=== PATIENT | female | born 1985 | race African-American/Black ===

== ENCOUNTER 2017-09-11 06:55 | Inpatient (IN) | payer OTHER ==
[2017-09-11] MEDS ORDERED: ELECTROLYTE-148 SOLN 500 ML IV ONE (07:00)
[2017-09-11 07:48] VITALS: BMI 38.4
[2017-09-11] MEDS ORDERED: PHENYLEPHRINE HCL 10 MG/1 ML SINGLE DOSE VIAL ONE (08:11)
[2017-09-11] MEDS ORDERED: morphine SULFATE/Preservative Free 0.5 MG/ML (1cc Syringe) ONE (08:11)
[2017-09-11] MEDS ORDERED: ONDANSETRON 4 MG/2 ML VIAL IVPUSH PRN (08:28)
[2017-09-11] MEDS ORDERED: CITRIC ACID/SODIUM CITRATE 30 ML UNIT-DOSE CUP PO ONE (08:30)
[2017-09-11] MEDS ORDERED: IBUPROFEN 800 MG/8 ML IJ IVPB PRN (08:31)
[2017-09-11] MEDS: ELECTROLYTE-148 SOLN 1,000 ML IV SCH (08:35)
--- NOTE | 2017-09-11 08:48 | HP ---
Past Medical History - Primary Care Physician PCP:: Jeffery Chau - Admission Chief Complaint: 31yo P1 with at EGA 39 6/7 wks admitted for repeat C/ S History of Present Illness: Prior C/S Obesity Maci's Thyroiditis Anemia History Source: Patient, Medical Record Limitations to Obtaining History: No Limitations - Past Medical History DAYCARE WORKER: No: Alzheimer's, CVA, Dementia, Migraine, Multiple Sclerosis, Peripheral Neuropathy, Parkinson's, Seizure, Syncope, TIA, Vertigo, Other Cardiovascular: No: AFIB, Aneurysm, Aortic Insufficiency, Aortic Stenosis, CAD, CHF, Deep Vein Thrombosis, HTN, Hyperlipdemia, ND, Mitral Insufficiency, Mitral Stenosis, Murmur, Pulmonary Hypertension, Other Pulmonary: No: Asthma, Bronchitis, Cancer, COPD, O2 Dependent, Pneumonia, Previously Intubated, Pulmonary Embolus, Pulmonary Fibrosis, Sleep Apnea, Other Gastrointestinal: No: Ascites, Cancer, Constipation, Crohn's Disease, Diverticulitis, Diverticulosis, Esophageal Varices, Gastritis, GERD, GI Bleed, Hemorrhoids, Hiatal Hernia, Inflamatory Bowel Disease, Irritable Bowel Disease, Pancreatitis, Peptic Ulcer Disease, Ulcerative Colitis, Other Hepatobiliary: No: Cirrhosis, Cholelithiasis, Cholecystitis, Choledocholithiasis , Hepatitis A, Hepatitis B, Hepatitis C, Other Renal/: No: Renal Failure, Renal Inusuff, BPH, Cancer, Hematuria, Hemodialysis , Neurogenic Bladder, Renal Calculi, UTI, Other Reproductive: No: Ectopic , Endometriosis, Fibroids, PID, Polycystic Ovary Syndrome, Postmenopausal, Other ...: 4 ...Para: 1 ...Term: 1 ...: 0 ...Spon : 2 ...Induced : 0 ...Multiple Gestation: 0 ...LMP: 12/01/16 ... Weeks Gestation by Dates: 39.6 ...EDC by Dates: 09/12/17 Heme/Onc: Yes: Anemia Infectious Disease: No: AIDS, C-Diff, Herpes Zoster, HIV, MRSA, STD's, Tuberculosis, VREF, Other Psych: No: Addictions, Anxiety, Bipolar, Depression, Panic, Psychosis, Schizophrenia, Other Musculoskeletal: No: Bursitis, Chronic low back pain, Hemiparesis, Hemiplegia, Osteoarthritis, Paraplegia, Other Rheumatology: No: Fibromyalgia, Gout, Lupus, Rheumatoid Arthritis, Sarcoidosis, Vasculitis, Other ENT: No: Allergic Rhinitis, Sinusitis, Other Endocrine: Yes: Hypothyroidism Dermatology: No: Basal Cell, Cellulitis, Eczema, Melanoma, Psoriasis, Squamous Cell, Other - Past Surgical History Past Surgical History: Yes: Hx Myomectomy: No Hx Transabdominal Cerclage: No - Smoking History Smoking history: Never smoked Have you smoked in the past 12 months: No - Alcohol/Substance Use Hx Alcohol Use: No History of Substance Use: reports: None - Social History Usual Living Arrangement: Yes: With Child ADL: Independent History of Recent Travel: No Home Medications - Allergies Allergies/Adverse Reactions: Allergies Allergy/AdvReac Type Severity Reaction Status Date / Time No Known Allergies Allergy Verified 09/11/17 07:31 - Home Medications Home Medications: Ambulatory Orders Ferrous Sulfate [Feosol] 325 mg PO DAILY 09/11/17 Levothyroxine [Synthroid -] 50 mcg PO DAILY 09/11/17 Vit/Iron Fum/Folic AC [ Tablet] 1 tab PO DAILY 09/11/17 Family Disease History - Family Disease History Family History: Denies Review of Systems - Review of Systems Constitutional: reports: No Symptoms Eyes: reports: No Symptoms HENT: reports: No Symptoms Neck: reports: No Symptoms Cardiovascular: reports: No Symptoms Respiratory: reports: No Symptoms Gastrointestinal: reports: No Symptoms Genitourinary: reports: No Symptoms Breasts: reports: No Symptoms Reported Musculoskeletal: reports: No Symptoms Integumentary: reports: No Symptoms Neurological: reports: No Symptoms Endocrine: reports: No Symptoms Hematology/Lymphatic: reports: No Symptoms Psychiatric: reports: No Symptoms Pain Intensity: 0 Physical Exam - Maternity Vital Signs: Vital Signs Temperature 98.5 F 09/11/17 07:40 Pulse Rate 95 H 09/11/17 07:40 Respiratory Rate 20 09/11/17 07:40 Blood Pressure 126/79 09/11/17 07:40 O2 Sat by Pulse Oximetry (%) Constitutional: Yes: Well Nourished, No Distress, Calm, Obese Eyes: Yes: WNL, Conjunctiva Clear HENT: Yes: WNL, Atraumatic, Normocephalic Neck: Yes: WNL, Supple, Trachea Midline Cardiovascular: Yes: WNL, Regular Rate and Rhythm Lungs: Clear to auscultation, Normal air movement - Abdominal Exam/OB Fundal Height: 40 Number of Fetuses: Single Presentation: Vertex Contractions: No Monitor Mode: External Heart Rate (range): 150 Heart Rate Location: Midline Category: I Accelerations: Non-Uniform Decelerations: None - Vaginal Exam/OB Vaginal Bleediing: No Speculum Exam: No Amniotic Membrane Status: Intact - Physical Exam Musculoskeletal: Yes: WNL Extremities: Yes: WNL Edema: Yes Edema: LLE: Trace, RLE: Trace Integumentary: Yes: WNL Deep Tendon Reflex Grade: Normal +2 ...Motor Strength: WNL Psychiatric: Yes: WNL, Alert, Oriented Hemorrhage Risk Assessment - Risk Factors Medium Risk Factors: Yes: Prior , uterine surgery,or multiple laparotomies High Risk Factors: Yes: None Risk Score: 1 Risk Level: Medium Risk Assessment/Plan 31yo P1 with at EGA 39 6/7 wks admitted for repeat C/S. We discussed the risks and benefits of C/S at length, including but not limited to scarring, pain, bleeding, infection, injury to underlying organs and structures, need for additional surgery to repair/treat any problems or complications, complications/injuries, etc. The pt verbalized her understanding and requested to proceed with surgery. The pt is aware that all surgeries have risks and no guarantees can be provided.
[2017-09-11] MEDS ORDERED: ELECTROLYTE-148 SOLN 1,000 ML IV SCH (09:00)
[2017-09-11] MEDS ORDERED: OXYTOCIN 20 UNITS in 0.9% NS 20 UNIT/1,000 ML INFUS.BAG IV ONE (09:35)
[2017-09-11] MEDS: OXYTOCIN 20 UNITS in 0.9% NS 20 UNIT/1,000 ML INFUS.BAG IV SCH ×2 (10:03→15:44)
[2017-09-11 10:37] LABS: ARTERIAL BLD GAS O2 SATURATION 9.8 % (90-98.9); ARTERIAL BLOOD GAS BASE EXCESS -1.9 meq/l (-2-2); ARTERIAL BLOOD GAS PCO2 67.5 mmHg (35-45); ARTERIAL BLOOD GAS PO2 11.8 mmHg (80-100); ARTERIAL BLOOD GAS pH 7.23 (7.35-7.45)
[2017-09-11] MEDS ORDERED: oxyCODONE HCL 5 MG TABLET PO PRN ×2 (10:42)
[2017-09-11] MEDS ORDERED: SENNOSIDES/DOCUSATE COMBO (SENNA PLUS) TABLET (UD) PO PRN (10:42)
[2017-09-11] MEDS ORDERED: METHYLERGONOVINE MALEATE 0.2 MG/1 ML AMP IM PRN (10:42)
[2017-09-11 10:45] LABS: VENOUS PC02 57.1 mmHg (38-52); VENOUS PH 7.29 (7.32-7.42)
[2017-09-11 10:46] LABS: VENOUS PO2 22.6 mmHg (28-48)
[2017-09-11] MEDS ORDERED: KETOROLAC TROMETHAMINE 30 MG/1 ML VIAL ONE (10:51)
--- NOTE | 2017-09-11 12:04 | OP ---
Operative Note - Note: Operative Date: 09/11/17 Pre-Operative Diagnosis: at EGA 39w 6d with prior C/S, maternal obesity Operation: Repeat LT C/S Findings: Dense adhesions b/w bladder and anterior abdominal wall and uterus. Live baby boy in vtx presentation, light meconium in amniotic fluid. 9/9 Post-Operative Diagnosis: Same as Pre-op Surgeon: Jeffery Chau Specialty Development Consultant: Marianela Knutson Anesthesiologist/CONCRETE FLOATER: Ashley Watkins Anesthesia: Spinal Specimens Removed: Placenta Estimated Blood Loss (mls): 1,000 Drains & Tubes with Location: Tovar cath Drains, Volume Out (mls): 150 (clear urine) Blood Volume Replaced (mls): 0 Fluid Volume Replaced (mls): 900 Operative Report Dictated: Yes
--- NOTE | 2017-09-11 12:12 | PN ---
Delivery - Delivery Section: Repeat, Low Flap Transverse Type of Anesthesia: Spinal Episiotomy/Laceration: None EBL (cc): 1,000 Delivery, Single - Stages of Labor Date of Delivery: 09/11/17 Time of Delivery: 10:03 Date Placenta Delivered: 09/11/17 Time Placenta Delivered: 10:04 Placenta: Yes: Manual Removal, Normal Configuration - Condition of Ironer Sock/Power Generation Technician Present: Yes Name: Silvia Platt Infant Gender: Female Weight: 3.629 kg Position: Left, OT Total Hours ROM (Hrs/Mins): 3mins - 1 Minute Total Score: 9 5 Minutes Total Score: 9 - [place] Feeding Plan Initial Plan: Elected not to breastfeed exclusively throughout hospitalization Benefits of Exclusively reinforced: Yes
[2017-09-11] MEDS: LEVOTHYROXINE NA 50 MCG TABLET (FP) PO SCH (12:44)
[2017-09-11] MEDS: ENOXAPARIN NA (PORCINE) 40 MG/0.4 ML DISP.SYRIN SQ SCH (12:45)
[2017-09-11] MEDS: PRENATAL VITAMINS W/ FOLIC ACID TABLET (FP) PO SCH (12:45)
[2017-09-11] MEDS ORDERED: TUBERCULIN PPD 5 TU/0.1ML SYRINGE (IN PATIENT USE ONLY) ID ONE (13:00)
[2017-09-11] MEDS ORDERED: ceFAZolin SODIUM 1 GM VIAL ONE (17:17)
[2017-09-11] MEDS ORDERED: DEXTROSE 5%-WATER - 50 ML IVPB ONE (17:17)
[2017-09-11] MEDS: CEFAZOLIN 1 GM in DEXTROSE 5%-WATER - 50 ML IVPB SCH (17:23)
--- NOTE | 2017-09-11 21:57 | OP ---
DATE OF OPERATION: 09/11/2017 PREOPERATIVE DIAGNOSES: at 39 weeks and 6 days, previous section, maternal obesity complicating and delivery. POSTOPERATIVE DIAGNOSES: at 39 weeks and 6 days, previous section, maternal obesity complicating and delivery. PROCEDURE: Low transverse section via Pfannenstiel skin incision. SURGEON: Jeffery Chau MD ELECTRICAL INTERN: Marianela Knutson MD ANESTHESIA: Spinal. ANESTHESIOLOGIST: PATHOLOGY: Placenta. INTRAVENOUS FLUIDS: 900 mL URINE OUTPUT: Clear urine 150 mL at the end of the procedure. ESTIMATED BLOOD LOSS: 1000 mL FINDINGS: Dense adhesions were noted between the anterior abdominal wall and bladder, as well as the bladder and the lower uterine segment. A live baby boy delivered from vertex presentation; light meconium in amniotic fluid; Apgars 9 and 9. DESCRIPTION OF PROCEDURE: The patient was met preoperatively. Risks, benefits, and alternatives of surgery were discussed in details. All questions were answered. The patient was brought to the OR with the IV running. She was placed on a surgical table in a sitting position. The spinal anesthesia was achieved without difficulty. The patient was then placed in a supine position with a leftward tilt. A Tovar catheter was inserted and left to drain to gravity. The patient was then prepped and draped in the usual sterile fashion. A timeout procedure was conducted as per standard protocol. The surgeons then proceeded with the operation. A Pfannenstiel skin incision was made with a knife along the prior scar. The incision was taken down to the level of fascia. The fascia was incised in the midline, and the incision was extended bilaterally using Brice scissors. The fascia was dissected away from the rectus muscles superiorly and inferiorly. The rectus muscles were in the midline using sharp dissection. The peritoneum was identified and entered sharply. The peritoneal incision was extended superiorly and inferiorly. Dense adhesions between the anterior abdominal wall and bladder were carefully dissected. The bladder was then dissected away from the lower uterine segment. Only limited bladder dissection was undertaken due to dense adhesions. The bladder was reflected downwards. The uterus was entered transversely in the lower uterine segment. The incision was extended bilaterally using bandage scissors. The amniotic bag was ruptured, and meconium-stained amniotic fluids were noted. The baby was delivered from vertex presentation without complications. The umbilical cord was clamped and cut. The baby was crying spontaneously and handed to the awaiting alley cleaner. A segment of the umbilical cord was secured for umbilical cord gases. The placenta was delivered manually without complications. The uterine cavity was cleared of all clots and debris using laparotomy laps. The uterus was then exteriorized. The uterine incision was repaired using a 0 Biosyn suture with a running locking stitch. Good hemostasis noted. The uterine incision was then imbricated using a 0 Biosyn suture with a running stitch and good hemostasis. The bladder peritoneum was approximated using several interrupted 0 Biosyn sutures. The operative site was irrigated using copious amounts of normal saline. Once the saline was aspirated, good hemostasis was noted. The uterus was returned into abdominal cavity. Once again, good hemostasis was confirmed. The abdominal peritoneum was closed with a 2-0 chromic suture. The rectus muscles were approximated in the midline using several interrupted 2-0 chromic sutures. The rectus fascia was closed using a 0 Vicryl suture. The skin was closed using ernestine. Good hemostasis was confirmed. Sponge, lap, and needle counts were correct. The patient tolerated the procedure well and was transferred to recovery room awake and in stable condition. Roland [id number]
[2017-09-12] MEDS ORDERED: ceFAZolin SODIUM 1 GM VIAL ONE ×2 (01:26→09:23)
[2017-09-12] MEDS ORDERED: DEXTROSE 5%-WATER - 50 ML IVPB ONE ×2 (01:26→09:22)
[2017-09-12] MEDS: CEFAZOLIN 1 GM in DEXTROSE 5%-WATER - 50 ML IVPB SCH ×2 (01:30→09:36)
[2017-09-12] MEDS ORDERED: ACETAMINOPHEN 325 MG TABLET (FP) ONE (05:55)
[2017-09-12] MEDS: IBUPROFEN 600 MG TABLET (FP) PO PRN ×4 (06:02→22:19)
[2017-09-12] MEDS: SIMETHICONE 80 MG TAB.CHEW (FP) PO PRN ×4 (06:02→22:18)
[2017-09-12] MEDS: ACETAMINOPHEN 325 MG TABLET (FP) PO PRN ×4 (06:10→22:18)
[2017-09-12] MEDS: LEVOTHYROXINE NA 50 MCG TABLET (FP) PO SCH (06:37)
[2017-09-12 08:19] LABS: BASO % 0.4 % (0-2.0); EOS % 0.7 % (0-4.5); HEMATOCRIT 35.5 % (32.4-45.2); HEMOGLOBIN 11.7 GM/dL (10.7-15.3); LYMPH % 15.8 % (8-40); MCH 27.5 pg (25.7-33.7); MCHC 32.9 g/dl (32.0-36.0); MEAN CELL VOLUME 83.4 fl (80-96); MEAN PLT VOLUME 8.8 fl (7.5-11.1); MONO % 8.2 % (3.8-10.2); NEUT % 74.9 % (42.8-82.8); PLATELET COUNT 147 K/MM3 (134-434); RBC 4.26 M/mm3 (3.60-5.2); RDW 15.3 % (11.6-15.6); WHITE BLOOD COUNT 11.9 K/mm3 (4.0-10.0)
[2017-09-12] MEDS: PRENATAL VITAMINS W/ FOLIC ACID TABLET (FP) PO SCH (09:36)
[2017-09-12] MEDS: ENOXAPARIN NA (PORCINE) 40 MG/0.4 ML DISP.SYRIN SQ SCH (09:37)
--- NOTE | 2017-09-12 10:15 | PN ---
Progress Note (short form) - Note Progress Note: Post op day#1.S/p C section under spinal anesthesia with duramorph uneventful.Patient stable and has little pain for which she is on medication.no any anesthesia related problem.Patient DC from the anesthesia care.
[2017-09-12] MEDS ORDERED: BISACODYL 10 MG SUPP.RECT RC PRN (10:42)
[2017-09-13] MEDS: LEVOTHYROXINE NA 50 MCG TABLET (FP) PO SCH (06:45)
[2017-09-13] MEDS: IBUPROFEN 600 MG TABLET (FP) PO PRN ×3 (06:47→19:43)
[2017-09-13] MEDS: SIMETHICONE 80 MG TAB.CHEW (FP) PO PRN (06:47)
[2017-09-13] MEDS: ACETAMINOPHEN 325 MG TABLET (FP) PO PRN ×3 (06:47→19:43)
[2017-09-13] MEDS: PRENATAL VITAMINS W/ FOLIC ACID TABLET (FP) PO SCH (09:47)
[2017-09-13] MEDS: ENOXAPARIN NA (PORCINE) 40 MG/0.4 ML DISP.SYRIN SQ SCH (09:47)
--- NOTE | 2017-09-13 15:40 | PATH ---
Surgical Pathology Report Patient Name: ANDREW GASTELUM [facility]. Rec. #: [id number] /Age/Gender: 1985 (Age: 31) / F Account: [id number] Location: [facility] OBS/CAMPAIGN CONSULTANT Taken: 09/11/2017 Received: 09/12/2017 Reported: 09/13/2017 Physicians: Jeffery Chau M.D. Specimen(s) Received PLACENTA Clinical History , 39.6 weeks, previous 01/2013 Final Diagnosis Placenta, : Mature THIRD trimester placenta with trivESSel umbilical cord. Electronically Signed April Reyes M.D. Gross Description The specimen is received fresh labeled placenta and is a 512 gram, 21.0 x 15.0 x 2.6 cm. placenta with attached membranes and umbilical cord. The attached membranes are sandoval, translucent with focal opacities and insert marginally. The umbilical cord measures 9 cm. in length and averages 1.4 cm. in diameter. The cord inserts eccentrically, 5 cm. to the nearest margin. No true knots or strictures are identified. Cut surface of the umbilical cord reveals 3 vessels. The surface is alfaro-blue with minimal fibrin deposition and appropriate caliber vessels. The maternal surface is red-brown with focal defects. Sectioning reveals red-brown, spongy parenchyma. No lesions are identified. Lay Up Operator sections are submitted in three cassettes as follows: 1- membrane rolls and umbilical cord; 2-3- full thickness sections of placenta. 09/12/2017 [facility]09/12/2017
--- NOTE | 2017-09-13 17:21 | PN ---
Post Progress Note - Subjective Subjective: No complaints. requested to go home tomorrow Post Day: 2 Type of Delivery: Repeat C/S Vital Signs: Vital Signs Temperature 98.5 F 09/13/17 10:00 Pulse Rate 93 H 09/13/17 10:00 Respiratory Rate 20 09/13/17 10:00 Blood Pressure 123/73 09/13/17 10:00 O2 Sat by Pulse Oximetry (%) 95 09/11/17 12:20 Breast Exam: Yes: Soft Uterus: Yes: Fundus Firm, Fundus below umbilicus, Non-tender Incision: Yes: [place] intact, Oozing (lightly, right edge) Abdomen/GI: Yes: Abdomen soft, Passing flatus, Tolerating PO Lochia: Yes: Rubra Lochia, amount: Small Extremities: Yes: Calves non-tender Perineum: Yes: Intact Activity: Ambulating - Labs Labs: CBC WBC 11.9 K/mm3 (4.0-10.0) H 09/12/17 07:15 RBC 4.26 M/mm3 (3.60-5.2) 09/12/17 07:15 Hgb 11.7 GM/dL (10.7-15.3) 09/12/17 07:15 Hct 35.5 % (32.4-45.2) 09/12/17 07:15 MCV 83.4 fl (80-96) 09/12/17 07:15 MCH 27.5 pg (25.7-33.7) 09/12/17 07:15 MCHC 32.9 g/dl (32.0-36.0) 09/12/17 07:15 RDW 15.3 % (11.6-15.6) 09/12/17 07:15 Plt Count 147 K/MM3 (134-434) 09/12/17 07:15 MPV 8.8 fl (7.5-11.1) 09/12/17 07:15 Absolute Neuts (auto) 8.9 # 09/12/17 07:15 Neutrophils % 74.9 % (42.8-82.8) 09/12/17 07:15 Lymphocytes % 15.8 % (8-40) 09/12/17 07:15 Monocytes % 8.2 % (3.8-10.2) 09/12/17 07:15 Eosinophils % 0.7 % (0-4.5) 09/12/17 07:15 Basophils % 0.4 % (0-2.0) 09/12/17 07:15 Nucleated RBC % 0 % (0-0) 09/12/17 07:15 Assessment/Plan 31yo P2 s/p repeat LT C/S, doing well stable, afebrile. care instructions reviewed. Continue routine postop care. Ambulation encouraged.
--- NOTE | 2017-09-13 17:24 | DS ---
Physical Exam-REMEDIAL MASSEUR Vital Signs: Vital Signs Temperature 98.5 F 09/13/17 10:00 Pulse Rate 93 H 09/13/17 10:00 Respiratory Rate 20 09/13/17 10:00 Blood Pressure 123/73 09/13/17 10:00 O2 Sat by Pulse Oximetry (%) 95 09/11/17 12:20 Constitutional: Yes: Well Nourished, No Distress, Calm Eyes: Yes: WNL, Conjunctiva Clear HENT: Yes: WNL, Atraumatic, Normocephalic Neck: Yes: WNL, Supple, Trachea Midline Cardiovascular: Yes: WNL, Regular Rate and Rhythm Respiratory: Yes: WNL, Regular, CTA Bilaterally Gastrointestinal: Yes: Normal Bowel Sounds, Soft, Abdomen, Obese ...Rectal Exam: Yes: Deferred Renal/: Yes: WNL ....Post : Yes: Uterus firm, Uterus non-tender, Slight lochia rubra Breast(s): Yes: WNL Musculoskeletal: Yes: WNL Extremities: Yes: WNL Edema: Yes Edema: LLE: Trace, RLE: Trace Integumentary: Yes: WNL Wound/Incision: Yes: Clean/Dry, Well Approximated, [place] Intact, Open to air Neurological: Yes: WNL, Alert, Oriented ...Motor Strength: WNL Psychiatric: Yes: WNL, Alert, Oriented Labs: CBC, BMP 09/12/17 07:15 Delivery - Delivery Section: Repeat, Low Flap Transverse Type of Anesthesia: Spinal Episiotomy/Laceration: None EBL (cc): 1,000 Delivery, Single - Stages of Labor Date of Delivery: 09/11/17 Time of Delivery: 10:03 Time Placenta Delivered: 10:04 Placenta: Yes: Manual Removal, Normal Configuration - Condition of Assistant Professor Of Psychology/Launch Engineer Present: Yes Name: Silvia Platt Gender: Female Weight: 3.629 kg Position: Left, OT Total Hours ROM (Hrs/Mins): 3mins - 1 Minute Total Score: 9 5 Minutes Total Score: 9 - [place] Feeding Plan Initial Plan: Elected not to breastfeed exclusively throughout hospitalization Benefits of Exclusively reinforced: Yes Discharge Summary Reason For Visit: REPEAT CSECTION at 39wk, prior C/S Procedures: Principal: repeat LT C/S Hospital Course: Normal recovery Condition: Good - Instructions Diet, Activity, Other Instructions: Physical activity Resume your normal everyday activity as tolerated no heavy lifting or exercise until seen by your surgeon. You may walk unlimited dominique of and climb stairs. You may resume driving the car when you feel safe and comfortable behind the wheel. No sexual activity as instructed. Wound care If you have a bandage, leave it on, and keep dry for 48-72 hours. After that time discard the outer bandage. If they are tapes on the skin under the out of bandage leave them in place. They will peel off in the next 7 to 10 days. Do Not Peel them off. You may shower the day after surgery. If there are tapes present on the skin, you may shower over them. Diet There are no dietary restrictions. Eat healthy, high-fiber foods. Drink 6 to 8 glasses of liquid each day. This will assist in keeping your bowels are regular. Pain management You may take Tylenol or acetaminophen or Ibuprofen (for example, Motrin, Advil etc.) from my pain prescription medication is ordered should be taken as prescribed for moderate to severe pain. Call MD for any of the following: Severe pain not relieved by medication Fever of 101 or higher Excessive bleeding or drainage on dressing Inability to urinate Referrals: Jeffery Chau MD [Staff Physician] - Disposition: HOME - Home Medications Comprehensive Discharge Medication List: Ambulatory Orders Ferrous Sulfate [Feosol] 325 mg PO DAILY 09/11/17 Levothyroxine [Synthroid -] 50 mcg PO DAILY 09/11/17 Vit/Iron Fum/Folic AC [ Tablet] 1 tab PO DAILY 09/11/17
[2017-09-14] MEDS: ELECTROLYTE-148 SOLN 1,000 ML IV SCH (01:30)
[2017-09-14] MEDS: OXYTOCIN 20 UNITS in 0.9% NS 20 UNIT/1,000 ML INFUS.BAG IV SCH (01:30)
[2017-09-14] MEDS: ACETAMINOPHEN 325 MG TABLET (FP) PO PRN ×2 (06:38→13:30)
[2017-09-14] MEDS: IBUPROFEN 600 MG TABLET (FP) PO PRN ×2 (06:39→13:31)
[2017-09-14] MEDS: LEVOTHYROXINE NA 50 MCG TABLET (FP) PO SCH (06:39)
--- NOTE | 2017-09-14 08:09 | PN ---
Post Progress Note - Subjective Subjective: Patient without acute complaints. Reports tolerating oral intake without nausea or vomiting. Ambulating without dizziness. Denies fevers or chills. Pain well controlled with oral pain medication. without difficulty. Passing flatus. Post Day: 3 Type of Delivery: Repeat C/S Vital Signs: Vital Signs Temperature 97.8 F 09/13/17 22:00 Pulse Rate 92 H 09/13/17 22:00 Respiratory Rate 18 09/13/17 22:00 Blood Pressure 127/88 09/13/17 22:00 O2 Sat by Pulse Oximetry (%) 95 09/11/17 12:20 Breast Exam: Yes: Soft Uterus: Yes: Fundus Firm, Fundus below umbilicus Incision: Yes: [place] intact. No: Redness, Oozing Abdomen/GI: Yes: Abdomen soft, Tender (mild incisional), Passing flatus, Tolerating PO. No: Abdominal Distention Lochia: Yes: [place] Lochia, amount: Small Extremities: Yes: Calves non-tender. No: Edema Activity: Ambulating - Labs Labs: CBC WBC 11.9 K/mm3 (4.0-10.0) H 09/12/17 07:15 RBC 4.26 M/mm3 (3.60-5.2) 09/12/17 07:15 Hgb 11.7 GM/dL (10.7-15.3) 09/12/17 07:15 Hct 35.5 % (32.4-45.2) 09/12/17 07:15 MCV 83.4 fl (80-96) 09/12/17 07:15 MCH 27.5 pg (25.7-33.7) 09/12/17 07:15 MCHC 32.9 g/dl (32.0-36.0) 09/12/17 07:15 RDW 15.3 % (11.6-15.6) 09/12/17 07:15 Plt Count 147 K/MM3 (134-434) 09/12/17 07:15 MPV 8.8 fl (7.5-11.1) 09/12/17 07:15 Absolute Neuts (auto) 8.9 # 09/12/17 07:15 Neutrophils % 74.9 % (42.8-82.8) 09/12/17 07:15 Lymphocytes % 15.8 % (8-40) 09/12/17 07:15 Monocytes % 8.2 % (3.8-10.2) 09/12/17 07:15 Eosinophils % 0.7 % (0-4.5) 09/12/17 07:15 Basophils % 0.4 % (0-2.0) 09/12/17 07:15 Nucleated RBC % 0 % (0-0) 09/12/17 07:15 Assessment/Plan 31 yo POD # 3 s/p repeat CD, afebrile, vital signs stable, doing well 1. Patient stable for discharge home today. 2. Patient encouraged to contact MD for: - Severe pain not controlled by oral pain medication - Fevers or chills - Nausea or vomiting, intolerance of oral intake - Incision redness, tenderness or discharge 3. Patient to follow up in office in 1-2 weeks for incision check, 4-6 weeks for visit
[2017-09-14] MEDS: ENOXAPARIN NA (PORCINE) 40 MG/0.4 ML DISP.SYRIN SQ SCH (09:43)
[2017-09-14] MEDS: PRENATAL VITAMINS W/ FOLIC ACID TABLET (FP) PO SCH (09:43)
[2017-09-14 09:52] LABS: BASO % 0.5 % (0-2.0); EOS % 1.3 % (0-4.5); HEMATOCRIT 35.6 % (32.4-45.2); HEMOGLOBIN 11.8 GM/dL (10.7-15.3); LYMPH % 18.8 % (8-40); MCH 27.4 pg (25.7-33.7); MCHC 33.3 g/dl (32.0-36.0); MEAN CELL VOLUME 82.3 fl (80-96); MEAN PLT VOLUME 8.4 fl (7.5-11.1); NEUT % 71.4 % (42.8-82.8); PLATELET COUNT 196 K/MM3 (134-434); RBC 4.32 M/mm3 (3.60-5.2); RDW 15.2 % (11.6-15.6); WHITE BLOOD COUNT 9.8 K/mm3 (4.0-10.0)
[2017-09-14 12:30] VITALS: BP 131/79; PULSE 95; TEMP 98.2
== END 2017-09-14 17:35 | disposition home or self-care (01) | DRG 540 ==
LOC: JLDR 06:55 → J3W 12:26
PROVIDERS: ADMIT Obstetrics & Gynecology; ATTEND Obstetrics & Gynecology
PROC: 10D00Z1 Extraction of Products of Conception, Low, Open Approach (ICD-10-PCS; principal; 2017-09-11)
PROC: 3E0334Z Introduction of Serum, Toxoid and Vaccine into Peripheral Vein, Percutaneous Approach (ICD-10-PCS; 2017-09-11)
DX: O34.211 Maternal care for low transverse scar from previous cesarean delivery (principal); N85.8 Other specified noninflammatory disorders of uterus; O99.214 Obesity complicating childbirth; E66.9 Obesity, unspecified; Z68.38 Body mass index [BMI] 38.0-38.9, adult; O99.02 Anemia complicating childbirth; Z3A.39 39 weeks gestation of pregnancy; O26.893 Other specified pregnancy related conditions, third trimester; Z67.91 Unspecified blood type, Rh negative; Z37.0 Single live birth
CPT/HCPCS: 36415; 36600; 82803; 85025; 85461; 86999; 88307-TC